=== PATIENT | female | born 1945 | race Caucasian/White ===

== ENCOUNTER 2016-08-04 12:34 | Inpatient (IN) | payer MEDICARE, MEDICAID ==
[~2016-08-04] VITALS: Ht 167.6 cm; Wt 164.7 kg
--- NOTE | ~2016-08-04 | EKG ---
[place], [place] ELECTROCARDIOGRAM REPORT NAME: NISSA PALMER UNIT #: [id number] ROOM: 524 DOCTOR: BALDEV MENDOZA MD BIRTHDATE: [birth year] DOS: 08/04/2016 TIME: 12.45:08. RATE AND RHYTHM: Normal sinus rhythm at 95 beats per minute. [place] interval 141 milliseconds. QRS duration 90 milliseconds. corrected QT interval 438 milliseconds, QRS axis 47. IMPRESSION: Normal low voltage in precordial leads, normal sinus rhythm, normal electrocardiogram. BALDEV MENDOZA MD CM:EKGRPT:ELECTROCARDIOGRAM REPORT [id number] BALDEV MENDOZA MD
--- NOTE | ~2016-08-04 | PR ---
[place], [place] PROGRESS NOTE [id number] UNIT #: [id number] ROOM: 524 DOCTOR: OBED GARRIDO MD,NADIA BIRTHDATE: [birth year] DOS: 08/08/2016 PULMONARY PROGRESS NOTE SUBJECTIVE: The patient was seen and examined on 08/08/2016 in her room. She has been comfortably sitting on the chair. The cough has been noted intermittent nonproductive, which was noted mild to moderate. Denies symptoms of chest pain, abdominal pain or acute shortness of breath. OBJECTIVE: VITAL SIGNS: Normal temperature, respiratory rate 20, heart rate of 96, blood pressure 126/68. Intake 1500, output 1225 mL recorded. Pulse oxygen saturation on room air 96% saturation. HEENT: Examination shows head was atraumatic. Eyes nonicterus. NECK: Supple. CARDIOVASCULAR SYSTEM: S1, S2 is audible. LUNGS: For the patient noted without any wheezing or crackles. Breaths are noted mildly decreased bilaterally. ABDOMEN: Noted severe chronic obesity. IMPRESSION: 1. The patient with acute tracheobronchitis with asthmatic bronchitis, responding to treatment progressively, nonproductive cough not completely resolved. 2. Severe morbid obesity with chronic lymphedema of the lower extremity, possibly superimposed cor pulmonale was also considered. PLAN OF TREATMENT: No change in plan of management. Continue the patient's current therapy and plan of care as previously. Usual care. Other supportive plan of management and therapy. NADIA CLAY MD CM:PNTRANS [phone] NADIA GARRIDO MD 08/09/16 0151 interface
--- NOTE | ~2016-08-04 | CON ---
[place], [place] REPORT OF CONSULTATION NAME: NISSA PALMER [facility] #: [id number] UNIT #: [id number] ROOM: 524 DOCTOR: NADIA GRUBBS MD BIRTHDATE: [birth year] DOS: 08/06/2016 PULMONARY CONSULTATION EVALUATION AND MANAGEMENT CONSULTATION REQUESTED BY: Dr. Mark Saravia. REASON FOR CONSULTATION: To assess the patient for acute ongoing coughing, now resolving with current treatment. HISTORY OF PRESENT ILLNESS: This is a 70-year-old white female who is known to me, brought to the hospital and hospitalized under the care of Dr. Mark Saravia on 08/04/2016. The patient did fall at home. She was also noted with a cough, which has been present for the past several days, which was noted significantly worsened. The cough has been noted without any sputum expectoration. She does complain of symptoms of chest congestion. Shortness of breath for the patient was occurring with exertion that has been noted gradually increased. She was also noted with chronic lymphedema, which were noted with some worsening as well recently. The patient denies any symptoms of chest pain. Denies any symptoms of wheezing. The cough has been described as significant and the same as of yesterday in the last 2 days and remains nonproductive. REVIEW OF SYSTEMS: CONSTITUTIONAL SYMPTOMS: Fatigue and tiredness noted without symptoms of fever or chills. EYES: Denies any burning, redness, or tenderness. EARS, NOSE, THROAT SYMPTOMS: Denies sore throat, hoarseness, or otalgia. CARDIOVASCULAR SYSTEM: Denies anginal pain or palpitation noted. Chronic lymphedema of the lower extremity with some worsening recently. GASTROINTESTINAL SYMPTOMS: Denies nausea, vomiting, diarrhea, abdominal pain, hematemesis, melena, hematochezia, or abnormal weight loss history. Denies symptoms of dysphagia. GENITOURINARY: Denies dysuria, suprapubic pain, hematuria. MUSCULOSKELETAL SYMPTOMS: Denies acute joint pain, redness, or tenderness. SKIN: No lesions or rashes except thickening of the lower extremity skin for this patient from lymphedema. CENTRAL NERVOUS SYSTEM: Denies dizziness, headache, diplopia or syncopal episodes. Remaining systems were reviewed with the patient, they were noted all negative. PAST MEDICAL HISTORY: Was noted. 1. Essential hypertension. 2. Type 2 diabetes mellitus. 3. History of gastroesophageal reflux. 4. Generalized anxiety disorder. 5. Degenerative arthritis. 6. Chronic edema of the lower extremities. SOCIAL HISTORY: The patient is , does not have any children. Denies history of alcohol use or any illicit drug use. [place], [place] REPORT OF CONSULTATION NAME: NISSA PALMER UNIT #: [id number] ROOM: 524 DOCTOR: NADIA GRUBBS MD BIRTHDATE: [birth year] PAST SURGICAL HISTORY: Were reported: 1. Cholecystectomy. 2. Complete hysterectomy. 3. Umbilical hernia repair. 4. Left leg surgery and right cataract removal. 5. Cardiac catheterization many years ago as well. FAMILY HISTORY: Has been reported for diabetes and cancer. HOME MEDICATIONS: Noted use of Hyzaar, Actos, Lumigan eye drops, ranitidine, Xanax, glyburide, Zofran, few of different eye drops used. DRUG ALLERGIES: Was noted: 1. CODEINE PHOSPHATE. 2. ERYTHROMYCIN. 3. VICODIN. 4. PENICILLINS. PHYSICAL EXAMINATION: GENERAL: A 70-year-old white female who has been currently sitting on the recliner in a room without any distress. Height of 5 feet 6 inches, weight of 263 pounds. VITAL SIGNS: Shows normal temperature, respiratory rate 18-24, heart rate of 101-104, blood pressure 126/68-132/72. Intake for patient reported as a 2300 mL, output 600 mL. Pulse oxygen saturation on room air was 97% saturation. HEENT: Head was atraumatic. Eyes nonicterus. NECK: Supple. Decreased posterior pharyngeal space. CARDIOVASCULAR SYSTEM: S1, S2 audible. LUNGS: Showed moderate reduction in breath sounds noted in the lungs bilaterally. There were no wheezing or crackles heard. ABDOMEN: Soft, nontender. EXTREMITIES: Severe lymphedema of the lower extremity with thickening of the skin with possibility of some superimposed edema still visible. MUSCULOSKELETAL SYMPTOMS: No acute deformities. SKIN: Shows no lesions or rash except dryness of the lower extremities with current chronic skin changes from the lymphedema. LABORATORY DATA: CBC of the patient of 08/04/2016, hemoglobin 11.3, hematocrit normal. MCV 102.8. WBC, platelet count normal. Lactic acid 2.2 for 08/04/2016. Follow up lactic acid 1.7 on 08/04/2016. CMP, 08/04/2016 on admission, BUN 21, creatinine 1.09. Sodium 134. Remaining CMP normal. CK-MB, troponin of the patient in the last 24 hours, the patient after admission were noted as normal. PT, INR were noted normal yesterday. Followup lactic acid of the patient was noted with increase up to 2.8 from yesterday and this morning. CBC of this morning for the patient was noted with mild anemia, hemoglobin 10.7, hematocrit 34.5, WBC count and platelet count were normal. CMP this morning, BUN 36, creatinine 1.36. ProBNP was elevated as 1173. The chest x-ray of the patient that was done for the patient on the current admission 2 view of the patient on 08/04/2016 were reviewed for the patient shows cardiomegaly with hyperinflated changes of this patient with peribronchial coughing. [place], [place] REPORT OF CONSULTATION [facility]: [id number] UNIT #: [id number] ROOM: 524 DOCTOR: NADIA GRUBBS MD BIRTHDATE: [birth year] IMPRESSION: 1. The patient who has been currently admitted to the hospital noted with ongoing severe acute bronchitis with possibility of underlying bronchial asthma cannot be completely excluded. 2. History of chronic severe morbid obesity. The patient with lymphedema of the lower extremities with possibly superimposed congestive heart failure, cor pulmonale cannot be excluded. 3. History of type 2 diabetes mellitus as well. 4. Clinical suspicion of obstructive sleep apnea disorder to be assessed as an outpatient. 5. Mild acute kidney injury of the patient, most likely secondary to intravascular volume depletion and use of the medications. PLAN OF TREATMENT: The patient has been currently getting the IV Solu-Medrol of the patient high dose 80 mg q. 8 hours, which will be continued. Continue current antibiotics. Addition of the Mucinex dose will be changed 1200 mg b.i.d., use of the flutter valve as well. Monitor respiratory status closely with the management of hyperglycemia as well. Usual care. Supportive therapy, plan of management and care. The patient was also noted with mild acute kidney injury, most likely secondary to volume depletion. That needs to be monitored. Gradual reduction of the use of the steroids as well. Further change in treatment will be done based on progression of the illness. Thanks for allowing me to participate in the care of this patient. NADIA CLAY MD CM:CONSTR:REPORT OF CONSULTATION 1234 08/07/16 1215 interface
--- NOTE | ~2016-08-04 | PR ---
[place], [place] PROGRESS NOTE NAME: NISSA PALMER UNIT #: [id number] ROOM: 524 DOCTOR: OBED GARRIDO MD,NADIA BIRTHDATE: [birth year] DOS: 08/07/2016 PULMONARY FOLLOWUP SUBJECTIVE: She has been noted comfortable at this time, sitting on the recliner chair in the room. Shortness of breath has been described to be decreased. The coughing has been noted decreased from yesterday, but not completely resolved. Denies symptoms of chest pain or any abdominal pain. OBJECTIVE: VITAL SIGNS: For the patient, which has been recorded showed the temperature of the patient recorded as normal. Respiratory rate for the patient recorded as 20, heart rate 100, blood pressure 141/78. Pulse oxygen saturation on room air was 98% saturation. HEENT: Chronic obesity. NECK: Supple and obese. CARDIOVASCULAR: S1, S2 audible. LUNGS: Shows moderate generalized reduction in the breath sounds. There were no wheezing or crackles heard. ABDOMEN: Soft, nontender. LABORATORY DATA: CT of the chest that was ordered by the primary care attending yesterday was reviewed and does not show any pulmonary embolism, acute pulmonary infiltration or other abnormalities. However, the study was noted limited because the patient with a very large body habitus. Echocardiogram of the patient that was completed on 08/06/2016 as well was reported by Dr. Louis with a technically limited study because of the patient's current body habitus. The left ventricular ejection fraction was described to be normal with normal left ventricular size. Grade 1 diastolic dysfunction of the patient was described as well. IMPRESSION: 1. The patient with acute tracheobronchitis, which has been noted for this patient on this admission with history of chronic morbid obesity. 2. Suspected obstructive sleep apnea disorder as well, possibility of cor pulmonale would be considered as well. PLAN OF TREATMENT: No change in the plan of management. Continue the patient's current therapy, plan and management. She seemed to be responding to the treatment progressively and gradually. Other supportive therapy, plan of management to be continued. Continue gradual reduction in the corticosteroids for the medical management of acute asthmatic bronchitis. [place], [place] PROGRESS NOTE NAME: NISSA PALMER UNIT #: [id number] ROOM: 524 DOCTOR: NADIA GRUBBS MD BIRTHDATE: [birth year] NADIA CLAY MD CM:PNTRANS [phone] NADIA GARRIDO MD 08/08/16 0457 interface
--- NOTE | ~2016-08-04 | PR ---
[place], [place] PROGRESS NOTE [id number] UNIT #: [id number] ROOM: 524 DOCTOR: OBED GARRIDO MD,NADIA BIRTHDATE: [birth year] DOS: 08/09/2016 PULMONARY PROGRESS NOTE SUBJECTIVE: She has been noted with gradual reduction in the respiratory symptoms with reduction in the cough. The cough still remains nonproductive, but the frequency and intensity has been improving. OBJECTIVE: VITAL SIGNS: Normal temperature, respiratory rate 22, heart rate 94, blood pressure 136/52. The pulse oxygen saturation on room air 99% saturation recorded. HEENT: Examination shows head was atraumatic. Eyes nonicterus. NECK: Supple. CARDIOVASCULAR: S1, S2 audible. LUNGS: Noted without any wheeze or crackles. ABDOMEN: Soft, nontender. LABORATORY DATA: The BMP for this patient that was done shows glucose 219, BUN 35, creatinine 1.22. CBC of the patient on 08/09/2016, hemoglobin 10.7, hematocrit 34.4, platelet count was normal. IMPRESSION: 1. The patient with stable respiratory status was noted at this time with resolving acute asthmatic bronchitis. 2. Edema of the lower extremities, chronic obesity and other medical problems. PLAN OF TREATMENT: The patient could be discharged home whenever is necessary with current medical management. In the meantime, continuation of the current therapy, plan of care. Outpatient followup suggested for the patient for a more comprehensive assessment of pulmonary status and future management to the patient. NADIA CLAY MD CM:PNTRANS [phone] NADIA GARRIDO MD 08/10/16 0139 interface
[~2016-08-04 12:34] MED LIST: ACTOS30 MG PO; ALPRAZOLAM0.25 MG PO; ANTIVERT/2525 MG PO; ANTIVERT25 MG PO; ASOPT; AZOPT 1% OPH; BROMDAY 1.7 ML1.7 ML OP; CLARITIN10 MG PO; DUREZOL 5 ML5 ML OP; GLYBURIDE5 MG; HYZAAR 50/12.5M1 TAB PO; KEFLEX500 MG PO; LUMIGAN 2.5 ML2.5 ML; MOTRIN800 MG PO; PREVACID SOLUTA30 MG PO; RANITIDINE150 MG; SEPTRA DS 800 M1 TAB PO; VIBRAMYCIN100 MG PO; VICODIN ES 7501 TAB PO; VIGAMOX 0.5% 3 M3 ML OPH; ZOFRAN4 MG PO
[2016-08-04 12:39] VITALS: BP 132/80
[2016-08-04 13:15] LABS: BASO % 0.4 % (0.0-1.0); EOS # 0.3 10*3/uL (0.0-0.4); EOS % 3.4 % (1.0-4.0); HEMATOCRIT 37.1 % (37.0-47.0); HEMOGLOBIN 11.3 g/dl (12.0-16.0); IG # 0.1 10*3/uL (0.0-0.1); LYMPH # 1.4 10*3/uL (1.3-4.4); LYMPH % 17.6 % (27.0-41.0); MEAN CELL VOLUME 102.8 fl (81.0-99.0); MEAN CORPUSCULAR HGB 31.3 pg (27.0-31.0); MEAN CORPUSCULAR HGB CONC 30.5 g/dl (33.0-37.0); MEAN PLATELET VOLUME 11.3 fl (9.6-12.3); MONO # 0.6 10*3/uL (0.1-1.0); MONO % 7.6 % (3.0-9.0); NEUT # 5.4 10*3/uL (2.3-7.9); NEUT % 70.4 % (47.0-73.0); PLATELET COUNT AUTOMATED 220 10*3/uL (130-400); RED BLOOD COUNT 3.61 10*6/uL (4.10-5.10); RED CELL DISTRI WIDTH 12.5 % (0-14.5); WHITE BLOOD COUNT 7.7 10*3/uL (4.8-10.8)
[2016-08-04 13:34] LABS: ALBUMIN 3.2 gm/dl (3.1-4.5); ALKALINE PHOSPHATASE 107 U/L (45-117); BILIRUBIN, TOTAL 0.4 mg/dl (0.2-1.0); BUN 21 mg/dl (7-24); CARBON DIOXIDE 27 mmol/L (21-32); CHLORIDE 109 mmol/L (98-107); EST GLOM FILT AFRICAN AMERICAN > 60 ml/min; GLUCOSE 134 mg/dL (65-99); POTASSIUM 4.2 mmol/L (3.5-5.1); SGOT/AST 7 IU/L (3-35); SGPT/ALT 23 U/L (12-78); SODIUM 146 mmol/L (136-145); TOTAL PROTEIN 7.1 gm/dL (6.4-8.2)
[2016-08-04 13:39] LABS: TROPONIN I < 0.015 ng/ml (<0.5)
[2016-08-04 15:12] LABS: LA>2 REFLEX 2 HR DRAW NOW
[2016-08-04 15:32] VITALS: BP 158/76
[2016-08-04] MEDS ORDERED: GLIPIZIDE10 M2 PO (16:07)
[2016-08-04] MEDS ORDERED: Synthroid,Levo50 MCG PO (16:08)
[2016-08-04] MEDS ORDERED: ATIVAN1 MG PO (16:09)
[2016-08-04] MEDS ORDERED: LUMIGAN50 DRP OPH (16:52)
[2016-08-04 20:00] VITALS: BP 150/82
[2016-08-05] VITALS: BP 144/85
[2016-08-05 06:46] LABS: BASO % 0.1 % (0.0-1.0); HEMATOCRIT 35.1 % (37.0-47.0); HEMOGLOBIN 11.1 g/dl (12.0-16.0); IG # 0.1 10*3/uL (0.0-0.1); LYMPH # 0.7 10*3/uL (1.3-4.4); MEAN CELL VOLUME 100.3 fl (81.0-99.0); MEAN CORPUSCULAR HGB 31.7 pg (27.0-31.0); MEAN CORPUSCULAR HGB CONC 31.6 g/dl (33.0-37.0); MONO # 0.4 10*3/uL (0.1-1.0); MONO % 3.8 % (3.0-9.0); NEUT # 8.5 10*3/uL (2.3-7.9); NEUT % 88.3 % (47.0-73.0); PLATELET COUNT AUTOMATED 205 10*3/uL (130-400); RED CELL DISTRI WIDTH 12.6 % (0-14.5); WHITE BLOOD COUNT 9.6 10*3/uL (4.8-10.8)
[2016-08-05 07:04] LABS: FREE T4 1.01 ng/dl (0.76-1.46); MAGNESIUM 1.8 mg/dL (1.5-2.1); POTASSIUM 4.8 mmol/L (3.5-5.1); THYROID STIM HORMONE (HS) 1.54 uIU/ml (0.358-4.75)
[2016-08-05 07:18] LABS: PROTHROMBIN TIME 10.5 SECONDS (9.0-12.4)
[2016-08-05 07:20] LABS: HEMOGLOBIN A1c 7.5 % (4.8-5.6)
[2016-08-05 07:31] LABS: FOLIC ACID 3.25 ng/mL (>5.38)
[2016-08-05 08:00] VITALS: BP 130/58
[2016-08-05 12:00] VITALS: BP 97/63
[2016-08-05 16:00] VITALS: BP 133/82
[2016-08-05 20:00] VITALS: BP 137/50
[2016-08-05 21:56] LABS: LA>2 REFLEX 2 HR DRAW NOW
[2016-08-05 23:30] LABS: LA>2 REFLEX 2 HR DRAW NOW
[2016-08-05 23:56] LABS: LA>2 RFLX FOLLOW UP AT 2 HRS 2.1 mmol/L (0.4-2.0)
[2016-08-06] VITALS: BP 132/73
[2016-08-06 01:42] LABS: LA>2 REFLEX 4 HR DRAW NOW
[2016-08-06 07:13] LABS: BILIRUBIN NEGATIVE (NEGATIVE); BLOOD NEGATIVE (NEGATIVE); CLARITY SL CLOUDY (CLEAR); COLOR YELLOW (YELLOW); GLUCOSE 1+ (NEGATIVE); KETONE NEGATIVE (NEGATIVE); LEUKO ESTERASE NEGATIVE (NEGATIVE); NITRITE NEGATIVE (NEGATIVE); PROTEIN NEGATIVE (NEGATIVE); UROBILINOGEN 0.2 E.U./dl (0.2-1.0)
[2016-08-06 07:24] LABS: HEMATOCRIT 34.5 % (37.0-47.0); HEMOGLOBIN 10.7 g/dl (12.0-16.0); MEAN CELL VOLUME 100.9 fl (81.0-99.0); MEAN CORPUSCULAR HGB 31.3 pg (27.0-31.0); MEAN PLATELET VOLUME 12.1 fl (9.6-12.3); PLATELET COUNT AUTOMATED 222 10*3/uL (130-400); RED BLOOD COUNT 3.42 10*6/uL (4.10-5.10); RED CELL DISTRI WIDTH 12.7 % (0-14.5); WHITE BLOOD COUNT 10.2 10*3/uL (4.8-10.8)
[2016-08-06 07:33] LABS: BACTERIA TRACE; RBC 0-2 rbc/hpf (0-2); URINE REFLEX COMMENT NO (NO); WBC 0-2 wbc/hpf (0-5)
[2016-08-06 07:47] LABS: LYMPHOCYTE # 0.4 10*3/uL (1.3-4.4); NEUTROPHIL # 9.8 10*3/uL (2.3-7.9); NEUTROPHILS 96 % (47-73); TOTAL CELLS COUNTED 100 #CELLS
[2016-08-06 07:48] LABS: PLATELET SUFFICIENCY NORMAL (NORMAL); TOXIC GRANULATION SLIGHT
[2016-08-06 07:54] LABS: ALBUMIN 3.1 gm/dl (3.1-4.5); BILIRUBIN, TOTAL 0.3 mg/dl (0.2-1.0); POTASSIUM 5.1 mmol/L (3.5-5.1); TOTAL PROTEIN 6.5 gm/dL (6.4-8.2)
[2016-08-06 08:00] VITALS: BP 126/68
[2016-08-06 12:00] VITALS: BP 155/74
[2016-08-06 16:00] VITALS: BP 146/69
[2016-08-06 20:00] VITALS: BP 117/56
[2016-08-07] VITALS: BP 114/47
[2016-08-07 08:00] VITALS: BP 141/78
[2016-08-07 08:17] VITALS: BP 141/78
[2016-08-07 10:19] LABS: HEMOGLOBIN 10.8 g/dl (12.0-16.0); MEAN CELL VOLUME 100.9 fl (81.0-99.0); MEAN CORPUSCULAR HGB CONC 31.8 g/dl (33.0-37.0); MEAN PLATELET VOLUME 11.6 fl (9.6-12.3); PLATELET COUNT AUTOMATED 211 10*3/uL (130-400); RED BLOOD COUNT 3.37 10*6/uL (4.10-5.10); RED CELL DISTRI WIDTH 12.9 % (0-14.5); WHITE BLOOD COUNT 15.8 10*3/uL (4.8-10.8)
[2016-08-07 10:33] LABS: POTASSIUM 5.2 mmol/L (3.5-5.1)
[2016-08-07 10:44] LABS: LYMPHOCYTE # 0.6 10*3/uL (1.3-4.4); MONOCYTE # 0.2 10*3/uL (0.1-1.0); NEUTROPHILS 95 % (47-73); PLATELET SUFFICIENCY NORMAL (NORMAL); TOTAL CELLS COUNTED 100 #CELLS
[2016-08-07 11:54] VITALS: BP 111/88
[2016-08-07 16:00] VITALS: BP 135/71
[2016-08-07 20:00] VITALS: BP 136/57
[2016-08-08] VITALS: BP 147/66
[2016-08-08 08:00] VITALS: BP 126/68
[2016-08-08 08:18] LABS: BASO % 0.1 % (0.0-1.0); EOS % 0.1 % (1.0-4.0); HEMATOCRIT 33.3 % (37.0-47.0); HEMOGLOBIN 10.4 g/dl (12.0-16.0); IG # 0.1 10*3/uL (0.0-0.1); LYMPH # 1.2 10*3/uL (1.3-4.4); LYMPH % 8.4 % (27.0-41.0); MEAN CELL VOLUME 103.4 fl (81.0-99.0); MEAN CORPUSCULAR HGB 32.3 pg (27.0-31.0); MEAN CORPUSCULAR HGB CONC 31.2 g/dl (33.0-37.0); MEAN PLATELET VOLUME 11.7 fl (9.6-12.3); MONO # 1.2 10*3/uL (0.1-1.0); MONO % 8.7 % (3.0-9.0); NEUT # 11.1 10*3/uL (2.3-7.9); NEUT % 81.7 % (47.0-73.0); PLATELET COUNT AUTOMATED 206 10*3/uL (130-400); RED BLOOD COUNT 3.22 10*6/uL (4.10-5.10); WHITE BLOOD COUNT 13.6 10*3/uL (4.8-10.8)
[2016-08-08 08:42] LABS: POTASSIUM 4.1 mmol/L (3.5-5.1)
[2016-08-08 12:00] VITALS: BP 122/70; BP 140/63
[2016-08-08 16:00] VITALS: BP 150/70
[2016-08-08 20:00] VITALS: BP 148/76
[2016-08-09] VITALS: BP 125/48
[2016-08-09 06:42] LABS: BASO % 0.2 % (0.0-1.0); EOS % 0.4 % (1.0-4.0); HEMATOCRIT 34.4 % (37.0-47.0); HEMOGLOBIN 10.7 g/dl (12.0-16.0); IG # 0.1 10*3/uL (0.0-0.1); LYMPH # 1.5 10*3/uL (1.3-4.4); MEAN CELL VOLUME 102.7 fl (81.0-99.0); MEAN CORPUSCULAR HGB 31.9 pg (27.0-31.0); MEAN CORPUSCULAR HGB CONC 31.1 g/dl (33.0-37.0); MEAN PLATELET VOLUME 12.1 fl (9.6-12.3); MONO % 9.8 % (3.0-9.0); NEUT # 7.1 10*3/uL (2.3-7.9); NEUT % 73.5 % (47.0-73.0); PLATELET COUNT AUTOMATED 195 10*3/uL (130-400); RED BLOOD COUNT 3.35 10*6/uL (4.10-5.10); RED CELL DISTRI WIDTH 13.1 % (0-14.5); WHITE BLOOD COUNT 9.7 10*3/uL (4.8-10.8)
[2016-08-09 07:12] LABS: POTASSIUM 5.1 mmol/L (3.5-5.1)
[2016-08-09 08:00] VITALS: BP 136/52
[2016-08-09 12:00] VITALS: BP 130/58; BP 140/60
[2016-08-09] MEDS ORDERED: GLIPIZIDE10 M2 PO (13:18)
[2016-08-09] MEDS ORDERED: HYZAAR 12.5 MG-1 TA2 PO (13:18)
[2016-08-09] MEDS ORDERED: DOXYCYCLINE100 MG PO (15:25)
[2016-08-09] MEDS ORDERED: AMINOPHYLLIN200 MG PO (15:25)
[2016-08-09] MEDS ORDERED: MUCINEX ER600 MG PO (15:25)
[2016-08-09] MEDS ORDERED: MEDROL DOSEPAK4 MG PO (15:27)
[2016-08-09] MEDS ORDERED: PROVENTIL0.09 MG/A1 INH (15:27)
[2016-08-09 16:00] VITALS: BP 116/78
== END 2016-08-09 16:48 | disposition home or self-care (01) | DRG 871 ==
LOC: ED 12:34 → EDHOLD 14:54 → 5E 14:54
PROVIDERS: Hospitalist; Internal Medicine; Internal Medicine Hospice and Palliative Medicine; Nurse Practitioner Family
DX: A41.9 Sepsis, unspecified organism (principal); J18.9 Pneumonia, unspecified organism; D52.9 Folate deficiency anemia, unspecified; E11.22 Type 2 diabetes mellitus with diabetic chronic kidney disease; N18.3 Chronic kidney disease, stage 3 (moderate); I50.9 Heart failure, unspecified; J44.0 Chronic obstructive pulmonary disease with (acute) lower respiratory infection; J44.1 Chronic obstructive pulmonary disease with (acute) exacerbation; R65.20 Severe sepsis without septic shock; E66.01 Morbid (severe) obesity due to excess calories; J20.9 Acute bronchitis, unspecified; J45.909 Unspecified asthma, uncomplicated; F41.1 Generalized anxiety disorder; Z90.49 Acquired absence of other specified parts of digestive tract; Z90.710 Acquired absence of both cervix and uterus; Z82.49 Family history of ischemic heart disease and other diseases of the circulatory system; Z83.3 Family history of diabetes mellitus; Z80.9 Family history of malignant neoplasm, unspecified; Z88.8 Allergy status to other drugs, medicaments and biological substances; Z88.0 Allergy status to penicillin; Z88.1 Allergy status to other antibiotic agents; Z79.899 Other long term (current) drug therapy

== ENCOUNTER 2018-04-19 08:49 | Emergency (ER) | payer MEDICARE, MEDICAID ==
[~2018-04-19] VITALS: Wt 163.3 kg
--- NOTE | ~2018-04-19 | EKG ---
[place], [place] ELECTROCARDIOGRAM REPORT NAME: NISSA PALMER UNIT #: [id number] ROOM: DOCTOR: NUZHAT DRAFT REPORT BIRTHDATE: [birth year] [facility] Test Date: 2018-04-19 Test Time: 09:32:49 Pat Name: NISSA PALMER Department: Room: Gender: F Creative Writing English Professor: DARRIAN CHENB: 1945 Requested By: KRISTIAN BERRIOS Order Number: [id number] Reading MD: Jerson Louis MD Measurements Intervals [place] Rate: 99 P: 28 SC: 131 QRS: 33 QRSD: 90 T: 16 QT: 351 QTc: 451 Interpretive Statements Sinus rhythm Low voltage, precordial leads Electronically Signed On 04-19-2018 13:02:18 PDT by Jerson Louis MD CM:EKGRPT:ELECTROCARDIOGRAM REPORT 0932 1302 KRISTIAN RAMÍREZ DRAFT REPORT KRISTIAN BERRIOS DO
[~2018-04-19 08:49] MED LIST changes: +AMINOPHYLLIN200 MG PO; +ATIVAN1 MG PO; +DOXYCYCLINE100 MG PO; +GLIPIZIDE10 M2 PO; +HYZAAR 12.5 MG-1 TA2 PO; +LUMIGAN50 DRP OPH; +MEDROL DOSEPAK4 MG PO; +MUCINEX ER600 MG PO; +PROVENTIL0.09 MG/A1 INH; +Synthroid,Levo50 MCG PO
[2018-04-19 09:29] LABS: BASO % 0.2 % (0.0-1.0); EOS # 0.1 10*3/uL (0.0-0.4); EOS % 0.8 % (1.0-4.0); HEMATOCRIT 30.5 % (37.0-47.0); HEMOGLOBIN 9.6 g/dl (12.0-16.0); LYMPH # 0.7 10*3/uL (1.3-4.4); LYMPH % 5.7 % (27.0-41.0); MEAN CELL VOLUME 95.3 fl (81.0-99.0); MEAN CORPUSCULAR HGB CONC 31.5 g/dl (33.0-37.0); MEAN PLATELET VOLUME 10.6 fl (9.6-12.3); MONO # 1.2 10*3/uL (0.1-1.0); MONO % 9.9 % (3.0-9.0); NEUT # 10.3 10*3/uL (2.3-7.9); NEUT % 82.4 % (47.0-73.0); PLATELET COUNT AUTOMATED 382 10*3/uL (130-400); RED CELL DISTRI WIDTH 12.9 % (0-14.5); WHITE BLOOD COUNT 12.5 10*3/uL (4.8-10.8)
[2018-04-19 09:37] LABS: INTERNATIONAL NORM RATIO 1.1 (2.0-3.5)
[2018-04-19 09:44] LABS: ALKALINE PHOSPHATASE 163 U/L (45-117); BUN 24 mg/dl (7-24); CHLORIDE 97 mmol/L (98-107); LIPASE 46 U/L (73-393); POTASSIUM 4.3 mmol/L (3.5-5.1); SGOT/AST 18 IU/L (3-35); SGPT/ALT 22 U/L (12-78); SODIUM 133 mmol/L (136-145); TOTAL PROTEIN 6.8 gm/dL (6.4-8.2)
[2018-04-19 09:46] LABS: TROPONIN I < 0.015 ng/ml (<0.045)
[2018-04-19 11:16] LABS: BILIRUBIN NEGATIVE (NEGATIVE); BLOOD NEGATIVE (NEGATIVE); CLARITY SL CLOUDY (CLEAR); COLOR YELLOW (YELLOW); GLUCOSE NEGATIVE (NEGATIVE); KETONE NEGATIVE (NEGATIVE); LEUKO ESTERASE NEGATIVE (NEGATIVE); NITRITE NEGATIVE (NEGATIVE); UROBILINOGEN 0.2 E.U./dl (0.2-1.0)
[2018-04-19 11:23] LABS: BACTERIA TRACE; EPITHELIAL CELLS 21-30
[2018-04-19 11:46] VITALS: BP 105/59
[2018-04-19] MEDS ORDERED: ZOFRAN ODT4 MG SL (12:41)
== END 2018-04-19 13:31 | disposition left against medical advice (07) ==
LOC: ED 08:49
PROVIDERS: Emergency Medicine
DX: R19.05 Periumbilic swelling, mass or lump (principal); R11.0 Nausea; E11.9 Type 2 diabetes mellitus without complications; I10 Essential (primary) hypertension; I13.0 Hypertensive heart and chronic kidney disease with heart failure and stage 1 through stage 4 chronic kidney disease, or unspecified chronic kidney disease; E11.22 Type 2 diabetes mellitus with diabetic chronic kidney disease; N18.3 Chronic kidney disease, stage 3 (moderate); I50.9 Heart failure, unspecified; J44.9 Chronic obstructive pulmonary disease, unspecified; E66.01 Morbid (severe) obesity due to excess calories; Z68.43 Body mass index [BMI] 50.0-59.9, adult; Z88.0 Allergy status to penicillin; Z88.6 Allergy status to analgesic agent; Z88.1 Allergy status to other antibiotic agents; Z79.899 Other long term (current) drug therapy; Z90.49 Acquired absence of other specified parts of digestive tract; Z90.710 Acquired absence of both cervix and uterus